=== PATIENT | male | born 1955 | race Caucasian/White ===

== ENCOUNTER 2016-07-11 12:44 | Emergency (ER) | payer OTHER ==
[~2016-07-11] VITALS: Ht 177.8 cm; Wt 90.0 kg
[2016-07-11 12:46] VITALS: BP 135/86; PULSE 64; RESP 15; TEMP 98.2; O2SAT 87
--- NOTE | 2016-07-11 13:07 | PD ---
HPI Chief Complaint: Pain: Acute or Chronic Time Seen by Provider: 12:55 Travel History International Travel<30 days: No Contact w/Intl Traveler<30days: No Traveled to known affect area: No History of Present Illness HPI This is a 60-year-old male who presents for evaluation. He reports that 45 minutes prior to arrival he was at [facility] having blood drawn for routine labs. Since then he has had some pain and ecchymosis at the IV insertion site. Pain is mild, aggravated by palpation. Denies chest pain or shortness of breath, cutaneous bleeding. He reports that he typically takes a baby aspirin on a daily basis, did not take one today. He does not take any other blood thinning medications. He has no other complaints. History Social History Alcohol Use: No Tobacco Use: No Allergies-Medications (Allergen,Severity, Reaction): Coded Allergies: No Known Allergies (Unverified , 07/08/16) Reported Meds & Prescriptions Reported Meds & Active Scripts Active No Active Prescriptions or Reported Medications Review of Systems General / Constitutional: No: Fever, Chills Musculoskeletal: Positive: Pain, No: Limited ROM Skin: Positive Other (positive for pain, bruising.) Physical Exam Narrative GENERAL: Well-developed well-nourished male in no acute distress SKIN: Warm and dry. Focused examination of the left arm reveals needlestick insertion point in the left antecubital region. There is a small amount of ecchymosis around this and just proximal to this. There is no edema, no significant soft tissue swelling. There is no cording or proximal streaking. CARDIOVASCULAR: Regular rate and rhythm. No murmur appreciated. RESPIRATORY: No accessory muscle use. Clear to auscultation. Breath sounds equal bilaterally. Extremities: As noted above. The compartments of the left forearm, proximal arm are soft and nontender. Full range of motion of the left arm. Pulses intact in the left radial and brachial arteries. Data Data Last Documented VS Vital Signs Date Time Temp Pulse Resp B/P Pulse Ox O2 Delivery O2 Flow Rate FiO2 07/11/16 12:46 98.2 64 15 135/86 87 MDM Medical Screen Exam Complete: Yes Emergency Medical Condition: No Narrative Course The patient appears to be experiencing some mild ecchymosis after a recent blood draw 45 minutes prior to arrival. This will likely be fleeting and resolve over the next week with simple interventions like ice and rest. I did discuss signs and symptoms that would warrant returning to the emergency room such as significant pain, soft tissue swelling, fevers, chest pain or shortness of breath and he verbalizes understanding. A medical screening exam was performed: At the time of evaluation the presenting medical condition was determined not to be of an emergent nature. The patient was given the option of receiving additional care, but declined. Patient was given options for additional community resources from which to obtain care. The Patient Has Been advised to seek medical attention for their presenting complaint. The patient has been advised to return to the ER at any time if an emergent condition develops. Primary Impression: Encounter for medical screening examination Scripts No Active Prescriptions or Reported Meds Mauro Montgomery July 11, 2016 13:07
[2016-07-22] MEDS ORDERED: AMOX875T PO (09:33)
[2016-07-22] MEDS ORDERED: TAMS5CAP PO (10:13)
[2016-07-22] MEDS ORDERED: PRAV20TA2 PO (10:13)
[2016-07-22] MEDS ORDERED: CLOT1CRE6 TOPICAL (10:22)
== END 2016-07-11 13:16 | disposition left against medical advice (07) ==
LOC: NEPD 12:44
DX: M79.603 Pain in arm, unspecified (principal)
CPT/HCPCS: 99281